=== PATIENT | female | born 1945 | race Two or more races ===

== ENCOUNTER 2018-02-14 13:24 | Outpatient (CLI) | payer OTHER ==
[~2018-02-14 13:24] MED LIST: ALLOPURINOL300 MG PO; ATENOLOL50 MG PO; DIOVAN HCT 161 UDTAB PO; ELIQUIS5 MG PO; LYRICA50 MG PO; METFORMIN HCL500 MG PO; PANTOPRAZOLE SO40 MG PO; RANITIDINE HCL150 M1 PO; SIMVASTATIN10 MG PO; SYNTHROID75 MCG PO
== END 2018-02-14 13:25 | disposition home or self-care (01) ==
LOC: SONOGRAMA 13:24 → MAMO-SONO 13:45
DX: E04.2 Nontoxic multinodular goiter (principal)

== ENCOUNTER → 2018-03-11 | Outpatient (CLI) | payer OTHER | END | disposition home or self-care (01) | LOC: MAMO-SONO 13:04 | DX: Z12.31 Encounter for screening mammogram for malignant neoplasm of breast (principal); Z87.898 Personal history of other specified conditions; N60.11 Diffuse cystic mastopathy of right breast; N60.12 Diffuse cystic mastopathy of left breast ==

== ENCOUNTER 2018-04-17 07:58 | Outpatient (CLI) | payer OTHER | END 2018-04-17 08:00 | disposition home or self-care (01) | LOC: SONOGRAMA 07:58 | DX: E04.1 Nontoxic single thyroid nodule (principal) ==

== ENCOUNTER 2018-05-02 13:42 | Outpatient (CLI) | payer OTHER | END 2018-05-02 14:00 | disposition home or self-care (01) | LOC: NUCLEAR 13:42 | DX: M81.0 Age-related osteoporosis without current pathological fracture (principal) ==

== ENCOUNTER 2019-04-01 10:41 | Outpatient (CLI) | payer OTHER | END 2019-04-01 10:47 | disposition home or self-care (01) | LOC: MAMO-SONO 10:41 | DX: Z12.31 Encounter for screening mammogram for malignant neoplasm of breast (principal); Z87.898 Personal history of other specified conditions; N60.19 Diffuse cystic mastopathy of unspecified breast; E04.2 Nontoxic multinodular goiter ==

== ENCOUNTER 2019-10-22 08:06 | Outpatient (CLI) | payer OTHER | END 2019-10-22 08:22 | disposition home or self-care (01) | LOC: RAD 08:06 → RX STUDY 08:15 → RAD 08:22 | DX: R13.19 Other dysphagia (principal); R10.13 Epigastric pain; M54.17 Radiculopathy, lumbosacral region; M54.16 Radiculopathy, lumbar region | CPT/HCPCS: 72148 ==

== ENCOUNTER → 2020-06-22 | Outpatient (CLI) | payer OTHER | END | disposition home or self-care (01) | LOC: MAMO-SONO 06-21 10:15 | PROVIDERS: ATTEND Family Medicine | DX: N60.11 Diffuse cystic mastopathy of right breast (principal); E04.2 Nontoxic multinodular goiter ==

== ENCOUNTER 2021-03-23 11:20 | Outpatient (CLI) | payer OTHER | END 2021-03-23 11:35 | disposition home or self-care (01) | LOC: MRI 11:20 | PROVIDERS: ATTEND Emergency Medicine | DX: M25.551 Pain in right hip (principal); M25.112 Fistula, left shoulder; M25.512 Pain in left shoulder; M71.58 Other bursitis, not elsewhere classified, other site | CPT/HCPCS: 73221; 73721 ==

== ENCOUNTER 2021-06-15 07:50 | Day surgery (SDC) | payer OTHER ==
[~2021-06-15 07:50] MED LIST changes: +RANEXA500 MG PO
== END 2021-06-15 12:55 | disposition home or self-care (01) ==
LOC: CIR.AMB 07:50
PROVIDERS: ATTEND Orthopaedic Surgery
DX: M75.122 Complete rotator cuff tear or rupture of left shoulder, not specified as traumatic (principal); M75.22 Bicipital tendinitis, left shoulder

== ENCOUNTER 2021-11-06 13:36 | Outpatient (CLI) | payer OTHER | END 2021-11-06 13:49 | disposition home or self-care (01) | LOC: MAMO-SONO 13:36 | PROVIDERS: ATTEND Obstetrics & Gynecology | DX: N64.4 Mastodynia (principal); E04.2 Nontoxic multinodular goiter ==

== ENCOUNTER → 2022-03-22 | Outpatient (CLI) | payer OTHER | END | disposition home or self-care (01) | LOC: NUCLEAR 09:30 | PROVIDERS: ATTEND Family Medicine | DX: M85.80 Other specified disorders of bone density and structure, unspecified site (principal); Z88.2 Allergy status to sulfonamides; Z88.0 Allergy status to penicillin; Z88.5 Allergy status to narcotic agent; Z88.6 Allergy status to analgesic agent; Z88.1 Allergy status to other antibiotic agents; Z91.040 Latex allergy status ==

== ENCOUNTER → 2022-05-17 | Outpatient (CLI) | payer OTHER | END | disposition home or self-care (01) | LOC: MRI 10:17 | PROVIDERS: ATTEND Emergency Medicine | DX: M54.2 Cervicalgia (principal); M54.16 Radiculopathy, lumbar region | CPT/HCPCS: 72148 ==

== ENCOUNTER 2022-09-26 07:17 | Outpatient (CLI) | payer OTHER | END 2022-09-26 07:30 | disposition home or self-care (01) | LOC: RAD 07:17 | PROVIDERS: ATTEND Internal Medicine Gastroenterology | DX: R16.0 Hepatomegaly, not elsewhere classified (principal); K30 Functional dyspepsia ==

== ENCOUNTER 2023-01-24 10:12 | Outpatient (CLI) | payer OTHER | END 2023-01-24 10:15 | disposition home or self-care (01) | LOC: SONOGRAMA 10:12 | PROVIDERS: ATTEND Family Medicine | DX: E04.2 Nontoxic multinodular goiter (principal) ==

== ENCOUNTER 2025-03-10 11:16 | Outpatient (CLI) | payer OTHER | END 2025-03-10 11:24 | disposition home or self-care (01) | LOC: MAMO-SONO 11:16 | PROVIDERS: ATTEND Family Medicine | DX: E04.2 Nontoxic multinodular goiter (principal); N60.11 Diffuse cystic mastopathy of right breast; N60.12 Diffuse cystic mastopathy of left breast; Z12.31 Encounter for screening mammogram for malignant neoplasm of breast ==

== ENCOUNTER 2025-03-22 10:50 | Outpatient (CLI) | payer OTHER | END 2025-03-22 10:51 | disposition home or self-care (01) | LOC: NUCLEAR 10:50 | PROVIDERS: ATTEND Family Medicine | DX: M81.0 Age-related osteoporosis without current pathological fracture (principal) ==